=== PATIENT | female | born 1945 | race American Indian/Alaskan Native ===

== ENCOUNTER 2018-01-16 05:51 | Inpatient (IN) | payer BC, MEDICARE ==
[2018-01-01 09:56] VITALS: BMI 35.9
[2018-01-16] MEDS ORDERED: Propofol 10 mg/ml Inj (20 ML) ONE (08:34)
[2018-01-16] MEDS ORDERED: Neostigmine Methylsulfate 3mg/3ml Syringe IV ONE ×2 (09:08→11:04)
[2018-01-16] MEDS ORDERED: Lidocaine 4% (Laryng-O-Jet) Kit MM ONE (09:38)
[2018-01-16] MEDS ORDERED: ceFAZolin IV 1 gm in Dextrose 2 GM/100 ML BAG IVPB ONE (09:39)
[2018-01-16] MEDS: Bacitracin 150,000 UNIT in Sodium Chloride 0.9% Irrig 3,000 ML IR SCH (10:38)
[2018-01-16] MEDS ORDERED: Rocuronium 10 mg/ml (5 ml) ONE (10:56)
[2018-01-16] MEDS ORDERED: Bupivacaine Liposomal Inj 20 ml INFIL ONE (12:25)
[2018-01-16] MEDS ORDERED: Sodium Chloride 0.9% 60 ML IV ONE (12:31)
[2018-01-16] MEDS ORDERED: Labetalol 25mg/5ml Syringe ONE (13:11)
[2018-01-16] MEDS: HYDROmorphone 0.5 mg/0.5 ml ISec IVP PRN ×2 (13:33→14:15)
--- NOTE | 2018-01-16 13:48 | CP.PCM.PN ---
Subjective - Date & Time of Evaluation Date of Evaluation: 01/16/18 Time of Evaluation: 08:47 - Subjective Subjective: PGY 3 Med Note- Dr. Waterman's service 72 year old female with past medical history significant for HTN, asthma and AGATA presents for right knee replacement surgery. Patient states that she has been having knee related pain affecting her ambulation for the past five years. She states that she has been following with Dr. Serna (Orthopedic Surgeon) for the past 1.5 years for continuing management and therapy. She further states that after all prior therapies, this was the last resort. She admits to knee pain. She denies subjective fevers or chills, nausea, vomiting, diarrhea , chest pain, palpitations or dyspnea at this time. PMHx as stated above. PSHX- breast reduction, toe surgery Fam Hx- Extensive cancer history in family including mother ( stomach), maternal grandmother ( stomach), cousin ( pancreatic) and brother ( throat) Medications- Metformin, Amlodipine, ASA 81 mg, allergy medication Social- tobacco, alcohol or drug use Allergies-peanut PMD- Dr. Levi Waterman Objective - Vital Signs/Intake and Output Vital Signs (last 24 hours): Temp Pulse Resp BP Pulse Ox 97.9 F 64 18 150/86 99 01/16/18 06:03 01/16/18 06:03 01/16/18 06:03 01/16/18 06:03 01/16/18 06:03 Intake and Output: 01/16/18 01/16/18 06:59 18:59 Intake Total 1600 Balance 1600 - Medications Medications: Current Medications Hydromorphone HCl (Dilaudid) 0.5 mg IVP Q5M PRN PRN Reason: Pain, severe (8-10) Stop: 01/16/18 15:31 Ondansetron HCl (Zofran Inj) 4 mg IVP ONCE PRN PRN Reason: Nausea/Vomiting Stop: 01/16/18 15:31 - Constitutional Appears: Non-toxic, No Acute Distress - Head Exam Head Exam: ATRAUMATIC - Eye Exam Eye Exam: EOMI, PERRL - ENT Exam ENT Exam: Mucous Membranes Moist - Neck Exam Neck Exam: Full ROM - Respiratory Exam Respiratory Exam: NORMAL BREATHING PATTERN - Cardiovascular Exam Cardiovascular Exam: +S1, +S2 - GI/Abdominal Exam GI & Abdominal Exam: Soft, Normal Bowel Sounds - Extremities Exam Extremities Exam: Tenderness (right knee). absent: Full ROM - Back Exam Back Exam: Full ROM - Neurological Exam Neurological Exam: Alert, Awake, Oriented x3 Neuro motor strength exam: Left Upper Extremity: 5, Right Upper Extremity: 5, Left Lower Extremity: 5, Right Lower Extremity: 5 - Psychiatric Exam Psychiatric exam: Normal Affect, Normal Mood - Skin Skin Exam: Dry, Normal Color, Warm Assessment and Plan (1) Degenerative joint disease of knee Assessment & Plan: For Total Knee replacement today with Dr. Serna. F/U recommendations CT of Right Knee obtained in October of 2017 confirms degenerative changes with subchondral sclerosis and osteophytosis. Refer to complete report PT/OT eval Status: Acute (2) HTN (hypertension) Assessment & Plan: Pain control Valsartan/HCTZ 12.5-160 mg dosing home med- NF, will administer equivalent dosing. of HCTZ 12.5 mg and Losartan 100 mg PO daily ASA 81 mg Monitor Status: Acute (3) Asthma Assessment & Plan: Albuterol HFA as needed Oxygen PRN Monitor Status: Acute (4) Prophylactic measure Assessment & Plan: Lovenox recommendations per ortho GI Prophylaxis not currently indicated. Discussed with attending physician. All orders and management per Dr. Waterman. Status: Acute
[2018-01-16] MEDS ORDERED: Lactated Ringer's 1,000 ML IV ONE (15:54)
[2018-01-16] MEDS ORDERED: ceFAZolin 1 gm FROZEN Premix 1 GM/50 ML ML IVPB SCH ×2 (16:00→18:00)
--- NOTE | 2018-01-16 16:24 | RAD ---
PROCEDURE: Right Knee Radiographs. HISTORY: s/p right knee surgery COMPARISON: None. FINDINGS: BONES: Examination is limited due to artifacts from stabilization board. Bone alignment and mineralization are normal. JOINTS: Status post total cemented knee arthroplasty. JOINT EFFUSION: None. OTHER FINDINGS: There are postsurgical changes in the periarticular soft tissues with anterior skin william. IMPRESSION: Status post total cemented knee arthroplasty, no acute complications.
--- NOTE | 2018-01-16 16:26 | PCM.ANESB7 ---
Adductor Canal Block - Adductor Canal Block Date of Procedure: 01/16/18 Anesthiologist: denise carrasco Pre-Procedure Diagnosis: right knee arthoplasty Post-Procedure Diagnosis: right knee arthoplasy Procedure Performed: Adductor Canal Block Right - Procedure Adductor Canal Block: The procedure was explained to the patient that it is for the post-operative pain management. Consent was obtained after a thorough discussion with the patient regarding the benefits and possible complications of local anesthetic adductor canal block of the femoral nerve. Standard monitors, as defined by the ASA, were applied to the patient. Time-out was held with the circulating nurse to confirm the appropriate block. After applying supplemental oxygen and administering IV Sedation as needed, the patient was placed in supine position with and the operative leg was flexed slightly at the knee and externally rotated as needed, and was kept anatomically stable. The mid-thigh of the ___ right lower extremity was exposed. The ultrasound transducer was then applied transversely along the medial aspect, about midway down the thigh and the femoral artery and vein were identified in appropriate relation with the sartorius muscle. At this time, the femoral nerve was visualized lateral to the femoral artery within the canal. After thorough identification, this area area was prepped with Chloroprep solution three times and 1 % Lidocaine was injected subcutaneously for topical anesthesia. At this point, a #22 gauge Stimuplex 4-inch needle was inserted in-plane in a [id number] orientation, and advanced toward the femoral nerve. Advancement was performed carefully under direct ultrasound visualization. After negative aspiration, __20___cc of __.25___% bupivacaine _was injected and this was followed withUnder ultrasound guidance the local anesthetics were observed spreading around the femoral nerve. The needle was removed intact and sterile dressing was applied. The patient had stable vital signs, was conscious and in no apparent distress. The patient tolerated the femoral nerve block well with stable vital signs and was prepared for subsequent surgery
[2018-01-16] MEDS: HYDROmorphone 1 mg/ml ISec IVP PRN (21:08)
[2018-01-16] MEDS ORDERED: ceFAZolin IV 2 gm in Dextrose 2 GM/50 ML BAG IVPB SCH (22:00)
[2018-01-17] MEDS: HYDROmorphone 1 mg/ml ISec IVP PRN ×5 (01:32→22:21)
[2018-01-17] MEDS: ceFAZolin IV 2 gm in Dextrose 2 GM/50 ML BAG IVPB SCH ×2 (01:36→10:13)
[2018-01-17] MEDS: Oxycodone/Acetaminophen 5/325 mg Tab PO PRN (03:21)
[2018-01-17 06:22] LABS: BASO % 0.1 % (0.0-2.0); HEMOGLOBIN 8.9 g/dL (11.0-16.0); LYMPH # 1.1 K/uL (1.0-4.3); LYMPH % 13.2 % (20.0-40.0); MEAN CELL VOLUME 94.3 fL (81.0-99.0); MEAN CORPUSCULAR HEMOGLOBIN 32.2 pg (27.0-31.0); MEAN CORPUSCULAR HGB CONC 34.1 g/dL (33.0-37.0); MEAN PLATELET VOLUME 8.7 fL (7.2-11.7); MONO # 1.2 K/uL (0.0-0.8); MONO % 14.2 % (0.0-10.0); NEUT % 72.5 % (50.0-75.0); RBC 2.76 Mil/uL (3.80-5.20); RED CELL DISTRIBUTION WIDTH 13.8 % (11.5-14.5); WHITE BLOOD COUNT 8.2 K/uL (4.8-10.8)
[2018-01-17 07:27] LABS: ALB/GLOB RATIO 1.2 (1.0-2.1); ALT/SGPT 32 U/L (9-52); AST/SGOT 19 U/L (14-36); BLOOD UREA NITROGEN 13 mg/dL (7-17); CALCIUM 7.7 mg/dl (8.6-10.4); GFR AFRICAN-AMERICAN > 60; GFR NON-AFRICAN AMERICAN > 60
--- NOTE | 2018-01-17 07:59 | CP.PCM.PN ---
Subjective - Date & Time of Evaluation Date of Evaluation: 01/17/18 Time of Evaluation: 08:00 - Subjective Subjective: PGY 3 Med Note- Dr. Waterman's service Patient was seen and examined at bedside this morning. She is s/p Right knee arthroplasy POD #1. She states she has pain but controlled with medications. She is eating very little due to decreased appetite and some mild nausea but denies vomiting. She is not passing flatus or had a BM yet. [place] in place, she would like this to be removed. Patient denies fever/chills, chest pain or shortness of breath. She is using her incentive spirometer. No new complaints at this time. Objective - Vital Signs/Intake and Output Vital Signs (last 24 hours): Temp Pulse Resp BP Pulse Ox 98.1 F 70 20 124/73 98 01/16/18 23:20 01/16/18 23:20 01/16/18 23:20 01/16/18 23:20 01/16/18 23:20 Intake and Output: 01/17/18 01/17/18 06:59 18:59 Intake Total 900 Output Total 860 Balance 40 - Medications Medications: Current Medications Enoxaparin Sodium (Lovenox) 40 mg SC DAILY [facility] Hydrochlorothiazide (Microzide) 12.5 mg PO 1800 [facility] Last Admin: 01/16/18 18:39 Dose: 12.5 mg Hydromorphone HCl (Dilaudid) 1 mg IVP Q4H PRN PRN Reason: Pain, severe (8-10) Last Admin: 01/17/18 01:32 Dose: 1 mg Cefazolin Sodium/Dextrose (Ancef Iv 2 Gm Duplex) 2 gm in 50 mls @ 100 mls/hr IVPB Q8H REJI PRN Reason: Protocol Stop: 01/20/18 18:29 Last Admin: 01/17/18 01:36 Dose: 100 mls/hr Losartan Potassium (Cozaar) 100 mg PO DAILY [facility] Last Admin: 01/16/18 18:40 Dose: 100 mg Oxycodone/Acetaminophen (Percocet 5/325 Mg Tab) 2 tab PO Q4H PRN PRN Reason: Pain, moderate (4-7) Stop: 01/19/18 19:52 Last Admin: 01/17/18 03:21 Dose: 1 tab - Labs Labs: 01/17/18 06:11 01/17/18 06:11 - Constitutional Appears: Non-toxic, No Acute Distress - Head Exam Head Exam: ATRAUMATIC, NORMAL INSPECTION - Eye Exam Eye Exam: EOMI - ENT Exam ENT Exam: Mucous Membranes Moist - Respiratory Exam Respiratory Exam: Clear to Ausculation Bilateral, NORMAL BREATHING PATTERN. absent: Respiratory Distress - Cardiovascular Exam Cardiovascular Exam: REGULAR RHYTHM, +S1, +S2 - GI/Abdominal Exam GI & Abdominal Exam: Soft, Hypoactive Bowel Sounds. absent: Distended, Firm, Guarding, Tenderness - Extremities Exam Additional comments: drain in place, bandages and ice on place. Patient is able to move her toes, warm, sensation in tact - Back Exam Back Exam: NORMAL INSPECTION - Neurological Exam Neurological Exam: Alert, Awake, Oriented x3 - Psychiatric Exam Psychiatric exam: Normal Affect, Normal Mood Assessment and Plan - Assessment and Plan (Free Text) Assessment: Degenerative joint disease of knee S/p R total knee replacement POD #1 (surgery 01/16/18) with Dr. Serna CT of Right Knee obtained in October of 2017 confirms degenerative changes with subchondral sclerosis and osteophytosis. Refer to complete report PT/OT eval Dilaudid 1mg IVP Q4 hours prn severe pain Percocet 5/325 2 tab PO Q4 hours prn moderate pain Ancef 2 gram IVPB Q 8 hours No fevers No BM/flatus Incentive spirometer Post surgery hbg 8.9 Ferrous Sulfate 325 mg PO daily f/u am labs HTN (hypertension) Pain control Valsartan/HCTZ 12.5-160 mg dosing home med- , will administer equivalent dosing. of HCTZ 12.5 mg and Losartan 100 mg PO daily Monitor Asthma Controlled Albuterol prn SOB Oxygen PRN Monitor Prophylactic measure Lovenox 40mg SC daily GI Prophylaxis not currently indicated. [place] to be discontinued Out of bed to chair \ Zofran prn nausea Dispo -> pending rehab placement/insurance authorization and clearance from orthopedics All orders and management per Dr. Waterman. Shasta Yeager DO PGY3
--- NOTE | 2018-01-17 09:41 | HP ---
HISTORY OF PRESENT ILLNESS: A 72-year-old female with history of arthritis, hypertension, also complaining of knee pain, on knee replacement. The patient has tried multiple modalities but her pain and edema are not improving, Requires surgery. The patient is Diovan 160, and pain medication, oxycodone. PHYSICAL EXAMINATION: GENERAL: The patient is awake, alert, and oriented. VITAL SIGNS: Temperature is 98, pulse 90. HEENT: Within normal limits. NECK Supple. CHEST: Symmetrical. HEART: Regular. ABDOMEN: Soft. EXTREMITIES: No edema. IMPRESSION: The patient suffers from osteoarthritis of the knee, hypertension. The patient to get bed rest. Patient going to the OR today. Levi Waterman MD
[2018-01-17] MEDS: Enoxaparin 40 mg Syringe SC SCH (10:09)
[2018-01-17] MEDS ORDERED: Albuterol 0.083% Inhal Sol (2.5 mg/3 mL) UD INH PRN (10:21)
[2018-01-17] MEDS: Multiple Vitamins Tab PO SCH (11:14)
--- NOTE | 2018-01-17 13:01 | RAD ---
PROCEDURE: Right Knee Radiographs. HISTORY: s/p right tka COMPARISON: None. FINDINGS: BONES: . No fracture. Femoral and tibial components appear well aligned tibial components cemented . Sclerotic mottled patellar bone mineralization with fibrous up insertional blending enthesophyte JOINTS: At minimum tibiofibular osteoarthritis. JOINT EFFUSION: Present OTHER FINDINGS: Anterolateral knee joint in place. Anterior skin william in place IMPRESSION: Status post total knee arthroplasty -components anatomically aligned
--- NOTE | 2018-01-17 15:31 | CP.PCM.PN ---
<Tyrell Hogue - Last Filed: 01/17/18 15:28> Subjective - Date & Time of Evaluation Date of Evaluation: 01/17/18 Time of Evaluation: 15:28 - Subjective Subjective: Patient states she has a lot of pain in her knee, but pain medication helps but makes her sleepy. Denies CP/SOB/dizziness/numbness/tingling. Objective - Vital Signs/Intake and Output Vital Signs (last 24 hours): Temp Pulse Resp BP Pulse Ox 98.8 F 66 20 108/70 94 L 01/17/18 09:33 01/17/18 09:33 01/17/18 09:33 01/17/18 09:33 01/17/18 09:33 Intake and Output: 01/17/18 01/17/18 06:59 18:59 Intake Total 900 Output Total 860 Balance 40 - Medications Medications: Current Medications Albuterol Sulfate (Albuterol 0.083% Inhal Brigida (2.5 Mg/3 Ml) Ud) 2.5 mg INH RQ6 PRN PRN Reason: Shortness of Breath Enoxaparin Sodium (Lovenox) 40 mg SC DAILY [facility] Last Admin: 01/17/18 10:09 Dose: 40 mg Ferrous Sulfate (Feosol) 325 mg PO DAILY [facility] Last Admin: 01/17/18 11:17 Dose: 325 mg Hydrochlorothiazide (Microzide) 12.5 mg PO 1800 [facility] Last Admin: 01/16/18 18:39 Dose: 12.5 mg Hydromorphone HCl (Dilaudid) 1 mg IVP Q4H PRN PRN Reason: Pain, severe (8-10) Last Admin: 01/17/18 12:48 Dose: 1 mg Losartan Potassium (Cozaar) 100 mg PO DAILY [facility] Last Admin: 01/17/18 10:08 Dose: 100 mg Multivitamins (Hexavitamin) 1 tab PO DAILY [facility] Last Admin: 01/17/18 11:14 Dose: 1 tab Ondansetron HCl (Zofran Tab) 4 mg PO Q6 PRN PRN Reason: Nausea/Vomiting Last Admin: 01/17/18 12:48 Dose: 4 mg Oxycodone/Acetaminophen (Percocet 5/325 Mg Tab) 2 tab PO Q4H PRN PRN Reason: Pain, moderate (4-7) Stop: 01/19/18 19:52 Last Admin: 01/17/18 03:21 Dose: 1 tab - Labs Labs: 01/17/18 06:11 01/17/18 06:11 - Extremities Exam Additional comments: +ROM ankle/toes, sensation intact, +DP/PT pulses calves soft NT neg homans hemovac 0cc overnight, 40cc now, pulled on CPM Assessment and Plan (1) Primary osteoarthritis of right knee Assessment & Plan: POD#1 s/p right TKR -pt/ot VTE proph d/c planning labs in am d/w Dr. Blas, agrees with above Status: Acute (2) Acute blood loss anemia Assessment & Plan: monitor Status: Acute <Cierra Serna S - Last Filed: 02/11/18 01:15> Objective - Vital Signs/Intake and Output Vital Signs (last 24 hours): Temp Pulse Resp BP Pulse Ox 98.1 F 102 H 20 119/75 96 01/18/18 15:45 01/18/18 15:45 01/18/18 15:45 01/18/18 15:45 01/18/18 15:45 - Labs Labs: 01/18/18 06:19 01/18/18 06:19 Assessment and Plan - Assessment and Plan (Free Text) Assessment: Pt seen and evaluated. Agree with PA Stock assessment and plan.
[2018-01-18] MEDS: Oxycodone/Acetaminophen 5/325 mg Tab PO PRN ×2 (01:27→12:50)
[2018-01-18 01:28] VITALS: RESP 20
[2018-01-18] MEDS: HYDROmorphone 1 mg/ml ISec IVP PRN ×2 (04:53→16:55)
[2018-01-18 06:25] LABS: BASO % 0.2 % (0.0-2.0); HEMOGLOBIN 8.2 g/dL (11.0-16.0); LYMPH # 1.2 K/uL (1.0-4.3); LYMPH % 11.6 % (20.0-40.0); MEAN CORPUSCULAR HEMOGLOBIN 32.6 pg (27.0-31.0); MEAN CORPUSCULAR HGB CONC 34.3 g/dL (33.0-37.0); MEAN PLATELET VOLUME 9.3 fL (7.2-11.7); MONO # 1.7 K/uL (0.0-0.8); MONO % 16.1 % (0.0-10.0); NEUT # 7.4 K/uL (1.8-7.0); NEUT % 72.1 % (50.0-75.0); RBC 2.5 Mil/uL (3.80-5.20); WHITE BLOOD COUNT 10.3 K/uL (4.8-10.8)
[2018-01-18 06:44] LABS: ALB/GLOB RATIO 1.1 (1.0-2.1); ALBUMIN 2.8 g/dL (3.5-5.0); ALT/SGPT 32 U/L (9-52); AST/SGOT 16 U/L (14-36); BLOOD UREA NITROGEN 10 mg/dL (7-17); CALCIUM 7.8 mg/dl (8.6-10.4); GFR AFRICAN-AMERICAN > 60; GFR NON-AFRICAN AMERICAN > 60
[2018-01-18] MEDS ORDERED: Potassium Chloride 20 mEq ER Tab PO STA (07:31)
[2018-01-18 07:46] VITALS: TEMP 98.1
[2018-01-18] MEDS: Enoxaparin 40 mg Syringe SC SCH (09:35)
[2018-01-18] MEDS: Multiple Vitamins Tab PO SCH (09:35)
--- NOTE | 2018-01-18 10:34 | CP.PCM.PN ---
Subjective - Date & Time of Evaluation Date of Evaluation: 01/18/18 Time of Evaluation: 09:00 - Subjective Subjective: PGY 3 Med Note- Dr. Waterman's service Patient was seen and examined at bedside this morning. She is s/p Right knee arthroplasy POD #2. She states she has pain but controlled with medications. She is eating very little due to decreased appetite and some mild nausea but denies vomiting. Patient states she is urinating frequently but denies dysuria. She otherwise has no new complaints today. Denies fever/chills, abd pain, SOB, or chest pain. Objective - Vital Signs/Intake and Output Vital Signs (last 24 hours): Temp Pulse Resp BP Pulse Ox 98.1 F 80 20 113/71 97 01/18/18 07:00 01/18/18 07:00 01/18/18 07:00 01/18/18 07:00 01/18/18 07:00 Intake and Output: 01/18/18 01/18/18 06:59 18:59 Intake Total 75 Output Total 350 Balance -275 - Medications Medications: Current Medications Albuterol Sulfate (Albuterol 0.083% Inhal Brigida (2.5 Mg/3 Ml) Ud) 2.5 mg INH RQ6 PRN PRN Reason: Shortness of Breath Enoxaparin Sodium (Lovenox) 40 mg SC DAILY [facility] Last Admin: 01/18/18 09:35 Dose: 40 mg Ferrous Sulfate (Feosol) 325 mg PO DAILY [facility] Last Admin: 01/18/18 09:34 Dose: 325 mg Hydrochlorothiazide (Microzide) 12.5 mg PO 1800 [facility] Last Admin: 01/17/18 18:25 Dose: 12.5 mg Hydromorphone HCl (Dilaudid) 1 mg IVP Q4H PRN PRN Reason: Pain, severe (8-10) Last Admin: 01/18/18 04:53 Dose: 1 mg Losartan Potassium (Cozaar) 100 mg PO DAILY [facility] Last Admin: 01/18/18 09:34 Dose: 100 mg Multivitamins (Hexavitamin) 1 tab PO DAILY [facility] Last Admin: 01/18/18 09:35 Dose: 1 tab Ondansetron HCl (Zofran Tab) 4 mg PO Q6 PRN PRN Reason: Nausea/Vomiting Last Admin: 01/18/18 08:01 Dose: 4 mg Oxycodone/Acetaminophen (Percocet 5/325 Mg Tab) 2 tab PO Q4H PRN PRN Reason: Pain, moderate (4-7) Stop: 01/19/18 19:52 Last Admin: 01/18/18 01:27 Dose: 2 tab - Labs Labs: 01/18/18 06:19 01/18/18 06:19 - Constitutional Appears: Non-toxic, No Acute Distress - Head Exam Head Exam: ATRAUMATIC, NORMAL INSPECTION - Eye Exam Eye Exam: EOMI, PERRL Pupil Exam: NORMAL ACCOMODATION - ENT Exam ENT Exam: Mucous Membranes Moist - Respiratory Exam Respiratory Exam: Clear to Ausculation Bilateral, NORMAL BREATHING PATTERN. absent: Respiratory Distress - Cardiovascular Exam Cardiovascular Exam: REGULAR RHYTHM, +S1, +S2 - GI/Abdominal Exam GI & Abdominal Exam: Soft, Normal Bowel Sounds. absent: Distended, Firm, Guarding, Tenderness - Extremities Exam Extremities Exam: Normal Inspection Additional comments: Right leg bandange and brace in place. Able to move toes, warm extremity - Back Exam Back Exam: NORMAL INSPECTION - Neurological Exam Neurological Exam: Alert, Awake, CN II-XII Intact, Oriented x3 - Psychiatric Exam Psychiatric exam: Normal Affect, Normal Mood Assessment and Plan - Assessment and Plan (Free Text) Assessment: Degenerative joint disease of knee S/p R total knee replacement POD #2 (surgery 01/16/18) with Dr. Serna CT of Right Knee obtained in October of 2017 confirms degenerative changes with subchondral sclerosis and osteophytosis. Refer to complete report PT/OT eval Dilaudid 1mg IVP Q4 hours prn severe pain Percocet 5/325 2 tab PO Q4 hours prn moderate pain Ancef 2 gram IVPB Q 8 hours No fevers No BM/flatus Incentive spirometer Post surgery hbg 8.9 Ferrous Sulfate 325 mg PO daily f/u am labs HTN (hypertension) Pain control Valsartan/HCTZ 12.5-160 mg dosing home med- NF, will administer equivalent dosing. of HCTZ 12.5 mg and Losartan 100 mg PO daily Monitor Urinary frequency UA with WBC and LE f/u urine C/S no abx at this time Macrobid 500mg PO BID x 5 day Asthma Controlled Albuterol prn SOB Oxygen PRN Monitor Prophylactic measure Lovenox 40mg SC daily GI Prophylaxis not currently indicated. [place] to be discontinued Out of bed to chair Zofran prn nausea Dispo -> pending rehab placement/insurance authorization and clearance from orthopedics. All orders and management per Dr. Waterman. Shasta Yeager DO PGY3
[2018-01-18 14:24] LABS: SQUAMOUS EPITHIAL 7 /hpf (0-5); URINE BACTERIA RARE (<OCC); URINE BILIRUBIN NEGATIVE (NEGATIVE); URINE BLOOD NEGATIVE (NEGATIVE); URINE CLARITY Hazy (Clear); URINE COLOR Yellow (YELLOW); URINE GLUCOSE (UA) NORMAL (Normal); URINE LEUKOCYTE ESTERASE 2+ Leu/uL (Negative); URINE PROTEIN NEGATIVE (NEGATIVE); URINE UROBILINOGEN NORMAL mg/dL (0.2-1.0)
[2018-01-18 16:14] VITALS: BP 119/75; PULSE 102; O2SAT 96
--- NOTE | 2018-01-30 22:27 | PCM.SURG1 ---
Surgeon's Initial Post Op Note - Surgeon's Notes Surgeon: Cierra Blas MD Health Economist: Woodrow Roberts PA-C Type of Anesthesia: General Endo, [facility] Pre-Operative Diagnosis: Right knee. #1 DJD. #2 valgus deformity. #3 mulitple loose bodies. #4 synovitis. #5 flexion contracture 5 degrees Operative Findings: Right knee. #1 DJD. #2 valgus deformity. #3 mulitple loose bodies. #4 synovitis. #5 flexion contracture 5 degrees Post-Operative Diagnosis: Right knee. #1 DJD. #2 valgus deformity. #3 mulitple loose bodies. #4 synovitis. #5 flexion contracture 5 degrees Operation Performed: Right knee #1 total knee arthroplasty. #2 open synovectomy. #3 open removal of mulitple large loose bodies Specimen/Specimens Removed: specimen= multiple LB's sent to path, [place] cuts sent to path. tourniquet time= 115 min at 300mmHg. Implants =. #1 Medacta GMK total knee system consisting of size 5 cemented PS distal femur, size 5 cemented tibial base plate, size 5 14mm poly tibial spacer (PS), size 2 cemented ply patellar button. #2 Biomet bone cement Estimated Blood Loss: EBL {In ML}: 50 Blood Products Given: N/A Drains Used: Hemovac Post-Op Condition: Good Date of Surgery/Procedure: 01/16/18 Time of Surgery/Procedure: 13:00
--- NOTE | 2018-02-11 05:14 | OP ---
PROCEDURE DATE: 01/16/2018 PREOPERATIVE DIAGNOSES: Right knee: 1. Degenerative joint disease. 2. Valgus deformity. 3. Multiple loose bodies. 4. Synovitis. 5. Five-degree flexion contracture. POSTOPERATIVE DIAGNOSES: Right knee: 1. Degenerative joint disease. 2. Valgus deformity/alignment. 3. Multiple large loose bodies. 4. Extensive three-compartment synovitis. 5. Five-degree flexion contracture. SURGEON: Cierra Blas MD LACING OPERATOR: Woodrow Roberts PA-C JUSTIFICATION FOR LACING OPERATOR: Woodrow Roberts is a certified physician junior sales assistant whose skilled surgical service was an absolute necessity for successful completion of the procedure as he provided skilled surgical assistance with positioning of the patient, positioning of extremity, management of surgical teixeira, retraction of neurovascular structures, preparation of distal femur and distal femoral cuts, preparation of proximal tibia with proximal tibial cuts, preparation of patella with patella cut, release of soft tissue contractures, extensive open synovectomy, open resection of multiple large loose bodies, proper cement technique, placement of trial and then final cemented implant distal femur, proximal tibia, polyethylene spacer, polyethylene cemented patellar button, wound closure, fitting and placement of postop knee brace. Woodrow Roberts was present for the entire case and was an absolute necessity for successful completion of the procedure. PROCEDURE: Right knee: 1. Total knee arthroplasty. 2. Open extensive synovectomy. 3. Open removal of multiple loose bodies. ANESTHESIA: General endotracheal anesthesia with a postop regional nerve block placed by anesthesia staff in PACU. SPECIMENS: Multiple loose bodies sent to Pathology as well as bony cuts sent to Pathology per hospital protocol. TOURNIQUET TIME: 150 minutes at 300 mmHg. COMPLICATIONS: None. DRAINS: Hemovac drain x1. ESTIMATED BLOOD LOSS: 50 mL. DISPOSITION: The patient was extubated and transferred to PACU in stable condition and tolerated procedure well. IMPLANTS: 1. Medacta GMK total knee system consisting of size-5 cemented posterior stabilized distal femur, size-5 cemented tibial base plate, size-5 and 14-mm polyethylene tibial spacer posterior stabilized, size-2 cemented polyethylene patellar button. 2. Biomet bone cement. INDICATIONS FOR SURGERY: The patient is a 72-year-old female with past medical history significant for hypertension, asthma, hypercholesterolemia, obstructive sleep apnea who presents to the office under my care for the first time with right much worse than left knee pain for years. She presented under my care for the first time on 08/22/2016. Examination revealed a 5-degree flexion contracture with loss of terminal flexion, limited range of motion from 5 to 120 degrees total, flexion arch. Findings consistent with valgus alignment and significant degenerative joint disease with medial and lateral joint line pain and difficulty going up and downstairs and walking long distances. X-rays taken in the office showed valgus alignment with significant degenerative joint disease and multiple posterior large loose bodies as well as in the suprapatellar space. We started conservative treatment in the form of bracing, anti-inflammatory medications/Mobic, and inflammatory compound cream, physical therapy, multiple cortisone injections over the span of one and half years under my care. She underwent cortisone mixture injection during multiple office visits; 08/22/2016, 09/19/2016, 10/02/2016, 10/23/2016. She then underwent hyaluronic acid, Orthovisc series to both knees starting 11/20/2016 to 12/19/2016 once a week for four weeks. The cortisone mixture injections provided her with near-complete resolution of pain that would last only a few weeks. The hyaluronic acid injection series with Orthovisc injections provided her with near-complete resolution of pain that lasted almost six months. She then returned to the office on 08/14/2017 with the pain returned to the baseline level and dysfunction with her pain consistently rated 7/10 and can be as worse as 9/10. 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 She underwent cortisone mixture injection under my care in the office on 08/14/2017, 10/16/2017, 10/30/2017, 11/27/2017. Again, each injection provided with near-complete resolution of pain that lasted shorter and shorter timeframe. The last injection only lasted her one week. Finally, after exhausting all conservative treatment, she was indicated for a right total knee arthroplasty, open extensive synovectomy, open removal of multiple large loose bodies. The risks, benefits and alternatives to the procedure were discussed at length with the patient with the risks including but not limited to infection, neurovascular damage, need for further surgery including revision surgery, iatrogenic injury and periprosthetic fracture, implant loosening and need for revision, accelerated wear of polyethylene spacer and osteolysis, stiffness, inability to return to presurgical level activity and range of motion, development of chronic pain and disability, development of blood clots including DVT and PE, anesthesia reactions including . After answering all of her questions on multiple office visits, she accepted the risks and wished to proceed with surgery. She watched surgical animation videos and diagnosis animation videos and stated that she had good understanding of the procedure as well as her diagnosis. I reviewed at length with her the postop and rehab protocol, and she understood and expressed that she understood the need for compliance with the rehab protocol in order to maximize the chance of having successful outcome after surgery. At that point in time, she was finally indicated for surgery. She had exhausted all conservative treatments including the multiple cortisone mixture injections as listed above and the hyaluronic acid injections, compliance with a year and half of physical therapy, bracing, anti-inflammatory medication as Mobic, anti-inflammatory cream. 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 Once this semester ended, she wished to schedule her surgery as soon as possible. She was placed on the schedule at [facility] for right total knee arthroplasty on 01/16/2018. She was referred to her primary care physician, Dr. Levi Waterman, for preadmission testing and preoperative medical clearance. PROCEDURE IN DETAIL: The patient was identified in the preoperative holding area, and the right knee was marked for surgery. Once again as described above, the risks, benefits, and alternatives to the procedure were discussed at length with the patient, and informed consent was obtained. After a brief discussion with anesthesia staff, the patient was taken to the operating room and placed on the well-padded operating room table with all bony prominences and superficial neurovascular structures well padded. An initial time-out was done with the surgeon, anesthesia staff, OR staff, all in agreement with the patient, procedure being done and extremity being operated on. General anesthesia was administered without difficulty or complication. Examination under anesthesia was then carried out. Examination under anesthesia: Right knee with limited range of motion compared to contralateral knee. There was a 5-degree flexion contracture with inability to obtain full extension, overall valgus alignment, significant crepitance throughout range of motion, no instability, loss of flexion with an arch of range of motion from 5 degrees to 120 degrees flexion with a mechanical block, stiff endpoint at 120 degrees flexion as well as attempting to obtain extension with a 5-degree flexion contracture. No instability with negative anterior drawer, negative posterior drawer, negative Cris, negative reverse Cris, negative opening to medial or lateral joint lines at 0 to 30 degrees of varus or valgus stress. Patella with mild patellar lateral mild tracking and a positive J-sign. CONTINUATION OF PROCEDURE: The right knee was prepped and draped in standard sterile fashion with a tourniquet placed high on the right knee. Final time-out was done with the surgeon, anesthesia staff, OR staff, all in agreement with the patient, procedure being done, and extremity being operated on. After the right lower extremity was prepped and draped in a standard sterile fashion, the limb was exsanguinated, and the tourniquet was insufflated at 300 mmHg with a total tourniquet time of 115 minutes. A medial parapatellar approach was employed for this surgery. Incision was made through the skin, down to subcutaneous tissue, down to the level of the medial retinaculum. The retinaculum was sharply incised as an arthrotomy starting at the medial fibrous of the quadriceps tendon in line with the fibers down and around the medial aspect of the patella to the medial fibers of the patellar tendon down to the tibial tuberosity. With overall valgus alignment and five-degree flexion contracture and a deformed patella, we decided to start with patellar preparation to allow the patella to sublux more easily without damage. The patella was everted and with the use of the [employer]itekacta patellar guide ensuring a minimum of 15-mm bone stock remaining, the saw blade was used to cut the patellar articular surface. Despite removing significant patellar articular surface and damaged cartilage, the lateral patella exhibited a sclerotic bone. At that point in time, we were able to sublux the patella laterally safely. A medial release was carried out as the medial proximal tibial periosteum was elevated and the deep MCL was released. ACL and PCL were then resected. An extensive open synovectomy was then carried out beyond with its usual and customary for a total knee replacement as there was significant hypertropic synovium and synovial fluid development. There is a question of inflammatory synovitis/inflammatory disease as a component to degenerative joint disease. A significant amount of surgical time was dedicated to this open extensive synovectomy through the suprapatellar pouch into the medial and lateral gutters. The hypertrophic fat pad was also debrided and resected. The contact points for the Medacta distal femoral custom cutting block were debrided of overlying cartilage, and the cutting block was pinned into place and secured. Saw blade was used to create our distal femoral cut. The custom distal femur cutting block was then removed, and the four-in-one guide was placed into position with three degrees external rotation down into the cuts. The anterior and posterior cuts as well as the anterior and posterior chamfer cuts were then made of the distal femur. A trial size-5 distal femur was then impacted into position and fit perfectly. Trial was removed and then we proceeded with completion of the distal femur cut for the posterior stabilized implant. The box cut was made with the guide and position, and the reamer for the Medacta system used to ream out the box cut. Rongeur was used to remove any remnant bone anteriorly to allow full access to the box for the posterior stabilized system. We then proceeded with open resection of the loose bodies that were known to be present. There were two large loose bodies seen in the suprapatellar pouch and resected upon initial dissection. With the use of the lamina spreaders, a significant amount of surgical time was dedicated to working behind the posterior aspect of the distal femur to remove the large loose bodies sitting posteriorly behind the medial and lateral femoral condyles. After some soft tissue releases and dissection, we successfully obtained the loose bodies that were seen on preoperative x-rays and CAT scans. Once the loose bodies were obtained, they were then sent to Pathology as well. We then turned our attention to the proximal tibia preparation. The custom proximal tibial cutting block was then pinned into position with the contact point seated without any underlying cartilage. Once the cutting guide was pinned into position, the saw blade was used to make the proximal tibia cut. Alignment guide was used to confirm that neutral alignment was restored. Proximal tibia preparation was then continued with the guide in position and intramedullary reamer path. Wedge osteotome was then passed and attention was then turned towards trial implant placement. Size-5 proximal tibia and size-5 distal femur were then impacted into position the trial implants as well as the size-2 patellar button with a 12-mm polyethylene posterior stabilized spacer. Knee was taken through range of motion and indeed soft tissue balancing had been achieved including spiritism of neutral alignment from the preoperative valgus alignment. Full extension and flexion was achieved with good stability. Patella still had some lateral mild tracking, and a lateral release was carried out, which then resulted in normal patellar tracking. As we were satisfied with the soft tissue balancing and positioning of implants and size of implants, the trial implants were removed and all cut surfaces were prepared. The bony cut surfaces were then copiously irrigated with approximately 3000 mL of normal saline. Once good hemostasis was achieved, the cement was mixed, and proper cement technique was used starting with the tibia. Proximal tibial surface was cemented, and the proximal tibia cemented baseplate was fit into position and impacted with good cement technique maintained. All excess cement was removed and attention was then turned towards cementing the distal femur. Cement was applied and distal femoral implant was impacted into position while maintaining good cement technique. A 12-mm polyethylene spacer was inserted, and axial load was applied in full extension. The patella was then cemented, and a size-2 patellar button was impacted into position with the peg holes drilled out. We then allowed for the cement to harden, and the tourniquet was deflated with a total tourniquet time of 115 minutes at 300 mmHg. Exparel local anesthetic was applied to the posterior capsule as well as the surrounding soft tissue to minimize postoperative pain. Once the cemented hardened, we then tested our implants for final sizing of the polyethylene spacer. There was a little hyperextension and toggling, and therefore we went up one size to a 14-mm polyethylene posterior stabilized spacer. Once this was trialed and confirmed to maintain full range of motion including full extension and soft tissue balancing with no instability, then a final 14-mm polyethylene posterior stabilized spacer was placed and secured into position. All final implants were in good position with good soft tissue balancing and full range of motion of the knee obtained as well as neutral alignment. A Hemovac drain was place, and good hemostasis was achieved. The wound was copiously irrigated with approximately 1000 to 2000 mL of normal saline. The retinaculum was then reapproximated with alternating #1 Vicryl suture and #2 FiberWire suture. Subcutaneous tissue was reapproximated with 2-0 Vicryl suture followed by william for skin. Sterile dressings were applied followed by a layer of sterile cast padding from the toes up to the superior tight followed by a layer of compressive Renato wrap from the toes up to the superior thigh. The knee was then fitted in place, and a postop hinged knee brace provided by my office. Once the brace was in position and locked at 0 degrees extension, the patient was then extubated and transferred to PACU in stable condition and tolerated the procedure well. DISPOSITION: The patient will be admitted as inpatient under Dr. Levi Waterman who was her primary care physician. Once she is medically cared for discharge, she will be discharged to a rehab facility or home with services. She will work with social work, case management, and physical therapy to determine optimal discharge scenario including subacute rehab versus acute rehab versus home with services. Once she is discharged, she will follow up in my office within one week at [facility]. I will monitor her progress as an inpatient. If she is discharged to [facility] or rehab, I will monitor her progress there as well and see her as an inpatient there. She will be started on DVT prophylaxis in the form of Lovenox 40 mg once daily starting postoperative day #1. She will receive adequate pain control. Cierra Blas MD
== END 2018-01-18 17:27 | DRG 470 ==
LOC: C.9S 05:51 → C.6T 16:26
PROVIDERS: ADMIT Student in an Organized Health Care Education/Training Program; ATTEND Student in an Organized Health Care Education/Training Program
PROC: 0SRC069 Replacement of Right Knee Joint with Oxidized Zirconium on Polyethylene Synthetic Substitute, Cemented, Open Approach (ICD-10-PCS; principal; 2018-01-16 07:15)
DX: M17.11 Unilateral primary osteoarthritis, right knee (principal); M21.061 Valgus deformity, not elsewhere classified, right knee; M21.261 Flexion deformity, right knee; M21.861 Other specified acquired deformities of right lower leg; M67.861 Other specified disorders of synovium, right knee; M23.41 Loose body in knee, right knee; J45.909 Unspecified asthma, uncomplicated; I10 Essential (primary) hypertension; G47.33 Obstructive sleep apnea (adult) (pediatric); M65.9 Synovitis and tenosynovitis, unspecified; E78.00 Pure hypercholesterolemia, unspecified; M21.00 Valgus deformity, not elsewhere classified, unspecified site

== ENCOUNTER 2018-08-02 09:45 | Outpatient (CLI) | payer BC, MEDICARE | END 2018-08-02 09:46 | disposition home or self-care (01) | LOC: C.VASC 09:45 | DX: R22.43 Localized swelling, mass and lump, lower limb, bilateral (principal) ==

== ENCOUNTER 2018-09-21 12:07 | Outpatient (CLI) | payer BC, MEDICARE | END 2018-09-21 12:08 | disposition home or self-care (01) | LOC: C.MRIC 12:07 ==

== ENCOUNTER 2018-10-21 12:32 | Outpatient (CLI) | payer BC, MEDICARE | END 2018-10-21 12:33 | disposition home or self-care (01) | LOC: C.MRIC 12:32 ==